=== PATIENT | female | born 1940 | race Two or more races ===

== ENCOUNTER 2020-12-18 19:15 | Inpatient (IN) | payer MEDICARE, OTHER ==
[~2020-12-18] VITALS: Ht 152.4 cm; Wt 54.9 kg
[2020-12-18 20:00] LABS: CALCIUM, SERUM 9.1 mg/dL (8.5-10.1); CARBON DIOXIDE 21 mmol/L (21-32); CHLORIDE 100 mmol/L (98-107); CREATININE 1.4 mg/dL (0.6-1.3); GLUCOSE 108 mg/dL (74-106); POTASSIUM 5.8 mmol/L (3.5-5.1); SODIUM SERUM 134 mmol/L (136-145); UREA NITROGEN, BLOOD 18 mg/dL (7-18)
[2020-12-18 20:06] LABS: ALANINE AMINOTRANSFERASE 50 U/L (12-78); ALBUMIN 2.5 g/dL (3.4-5.0); ALKALINE PHOSPHATASE 368 U/L (46-116); ASPARTATE AMINOTRANSFERASE 107 U/L (15-37); BILIRUBIN,DIRECT 2.4 mg/dL (0.0-0.2); BILIRUBIN,TOTAL 3.9 mg/dL (0.2-1.0); LIPASE 342 U/L (73-393); TOTAL PROTEIN, SERUM 7.4 g/dL (6.4-8.2)
--- NOTE | 2020-12-18 20:17 | NUR ---
Patient to CT
[2020-12-18 20:24] LABS: SERUM AMMONIA 72 umol/L (11-32)
[2020-12-18 20:35] LABS: BASOPHILS # (AUTO) 0.1 /CMM (0.0-0.2); BASOPHILS % (AUTO) 0.6 % (0.0-2.0); EOSINOPHILS % (AUTO) 0.4 % (0.0-6.0); HEMATOCRIT 38 % (33-45); HEMOGLOBIN 12.2 g/dL (11.5-14.8); LYMPHOCYTES # (AUTO) 0.8 /CMM (0.8-4.8); LYMPHOCYTES % (AUTO) 5.8 % (20.0-44.0); MEAN CORPUSCULAR HGB CONC 32 g/dl (31.0-36.0); MEAN CORPUSCULAR VOLUME 99 fL (82-100); MONOCYTES # (AUTO) 0.4 /CMM (0.1-1.30); NEUTROPHILS # (AUTO) 12.9 /CMM (1.8-8.9); NEUTROPHILS % (AUTO) 90.2 % (43.0-81.0); PLATELET COUNT (AUTO) 260 /CMM (150-450); RED BLOOD CELL COUNT(AUTO) 3.87 MIL/uL (4.0-5.2); WHITE BLOOD COUNT (AUTO) 14.3 K/uL (4.3-11.0)
--- NOTE | 2020-12-18 21:05 | NUR ---
DR. LEHMAN AT BEDSIDE FOR PARACENTESIS
--- NOTE | 2020-12-18 21:16 | NUR ---
PERITONEAL FLUIDS COLLECTED AND SENT TO THE LAB.
--- NOTE | 2020-12-18 21:27 | NUR ---
PANEL PAGED PER MD REQUEST
[2020-12-18] MEDS ORDERED: LACTULOSE 10 G/15 ML UDC (PYXIS) PO ONE (21:30)
[2020-12-18] MEDS ORDERED: CEFTRIAXONE 1 G in IV D5W 50 ML IV ONE (21:30)
[2020-12-18 22:08] LABS: BAND % (MANUAL) 5 % (0.0-5.0); LYMPHOCYTES % (MANUAL) 10 % (16-48); MONOCYTES % (MANUAL) 3 % (0-11.0); NEUTROPHILS % (MANUAL) 82 (42-76)
--- NOTE | 2020-12-18 22:08 | NUR ---
5.8L OF YELLOW CLOUDY PERITONEAL FLUID OUT OF PATIENT.
--- NOTE | 2020-12-18 22:19 | NUR ---
BED ASSIGNMENT 118-1
--- NOTE | 2020-12-18 22:20 | NUR ---
RN NOTES RECEIVED ER ADMISSION REPORT FROM JACK DONAHUE. ALL PERTINENT ADMISSION INFO REGARDING PT NOTED. WILL WAIT FOR PT TO BE TRANSFERRED TO UNIT AND ADDRESS NEEDS ACCORDINGLY. DIRECTOR IMMUNOLOGY MADE AWARE.
--- NOTE | 2020-12-18 22:23 | NUR ---
DARIAN (CELL: [phone]/HOME: [phone])
--- NOTE | 2020-12-18 22:28 | NUR ---
REPORT GIVEN TO DEMETRIS SANTIAGO FOR JEANE.
[2020-12-18] MEDS ORDERED: LACTULOSE 10 G/15 ML UDC (PYXIS) ONE (22:30)
[2020-12-18] MEDS ORDERED: CEFTRIAXONE 1GM BAG (ER ONLY) 50 ML IV ONE (22:30)
[2020-12-18] MEDS ORDERED: MEGE20TA3 PO (22:54)
[2020-12-18] MEDS ORDERED: DONE10TA11 PO (22:54)
[2020-12-18] MEDS ORDERED: MEMA10TA56 PO (22:54)
[2020-12-18] MEDS ORDERED: LEVO50TA8 PO (22:54)
--- NOTE | 2020-12-18 22:54 | NUR ---
REC'D MEDICATION LIST FROM PT'S SON DARIAN. PER SON, UNK DOSAGES BUT WILL CALL BACK TOMORROW WITH MORE INFORMATION
--- NOTE | 2020-12-18 23:39 | NUR ---
DR. ESPINOZA SPEAKING WITH DR. PHILLIP
[2020-12-19] MEDS ORDERED: HYDROCODONE/APAP 5/325MG TABLET PO PRN
[2020-12-19] MEDS ORDERED: ACETAMINOPHEN 650 MG/20.3 ML UDC NG PRN
[2020-12-19] MEDS ORDERED: LACTULOSE 10 G/15 ML UDC (PYXIS) PO PRN
--- NOTE | 2020-12-19 00:20 | NUR ---
RN NOTES RECEIVED PT FROM ER VIA GURNEY ACCOMPANIED BY 2 ER STAFF AND TRANSFERRED TO BED VIA 2 PERSON ASSIST. PT IS ALERT AND ORIENTED X2. PT ON ROOM AIR WITH RESPIRATIONS EVEN AND UNLABORED. COMPREHENSIVE PHYSICAL ASSESSMENT AND PATIENT CARE DONE. CALL LIGHT WITHIN REACH, SAFETY MEASURES AND ISOLATION PRECAUTION IN PLACE, WILL CONTINUE MONITOR AND ASSESS THROUGHOUT THE SHIFT. WILL CARRY OUT MD ORDERS ACCORDINGLY. QUALITY PROCESS ENGINEER MADE AWARE.
[2020-12-19 00:30] VITALS: BP 103/48
[2020-12-19] MEDS: IV D5/ 0.9% NACL 1,000 ML IV PRN ×2 (01:00→16:11)
--- NOTE | 2020-12-19 03:30 | NUR ---
RN NOTES PATIENT REMAINS IN NO ACUTE RESPIRATORY DISTRESS AT THIS TIME, NO CHANGES TO CONDITION/STATUS. AM PATIENT CARE DONE. WELDER FITTER ARC WELL AWARE. WILL CONTINUE TO MONITOR AND REASSESS FOR ANY CHANGES THROUGHOUT THE SHIFT
[2020-12-19 04:00] VITALS: BP 138/62
--- NOTE | 2020-12-19 04:14 | NUR ---
RN NOTES PT NOTED TO HAVE EPISODES OF NAUSEA AND VOMITING 2X; MODERATE IN AMOUNT. INSECT CONTROL AIDE MADE AWARE. WILL INFORM DR. PHILLIP AND SECURE ORDER. COMMUNICATED WITH DR. PHILLIP AND SECURE ORDER FOLLOWS: MORPHINE 2MG IV Q3H PRN AND [id number] IV Q4H PRN. RN ACKNOWLEDGED. WILL CARRY OUT ORDERED. INSECT CONTROL AIDE MADE AWARE.
[2020-12-19] MEDS ORDERED: ONDANSETRON HCL/PF 4 MG/2 ML VIAL IV PRN (04:30)
[2020-12-19 06:46] LABS: BASOPHILS # (AUTO) 0.1 /CMM (0.0-0.2); BASOPHILS % (AUTO) 0.2 % (0.0-2.0); HEMATOCRIT 34 % (33-45); HEMOGLOBIN 11.1 g/dL (11.5-14.8); LYMPHOCYTES # (AUTO) 0.3 /CMM (0.8-4.8); LYMPHOCYTES % (AUTO) 1.2 % (20.0-44.0); MEAN CORPUSCULAR HGB CONC 33 g/dl (31.0-36.0); MEAN CORPUSCULAR VOLUME 98 fL (82-100); MONOCYTES # (AUTO) 0.8 /CMM (0.1-1.30); MONOCYTES % (AUTO) 3.1 % (2.0-12.0); NEUTROPHILS # (AUTO) 25.9 /CMM (1.8-8.9); NEUTROPHILS % (AUTO) 95.5 % (43.0-81.0); PLATELET COUNT (AUTO) 169 /CMM (150-450); RED BLOOD CELL COUNT(AUTO) 3.42 MIL/uL (4.0-5.2); WHITE BLOOD COUNT (AUTO) 27.1 K/uL (4.3-11.0)
--- NOTE | 2020-12-19 06:56 | NUR ---
RN CLOSING NOTE: PATIENT REMAINS IN ROOM IN NO SIGNS OF RESPIRATORY DISTRESS, PATIENT STILL ON ROOM AIR;TOLERATING WELL SATURATING @ >95% SP02. SAFETY MEASURES IMPLEMENTED, BED IN LOWEST POSITION, LOCKED, SIDE RAILS UP, CALL LIGHT WITHIN REACH. ALL NEEDS AND ORDERS ADDRESSED DURING THE SHIFT. IV ACCESS MAINTAINED INTACT, SECURED AND FLUSHING WELL. ALL DUE MEDS GIVEN ORDERED & SCHEDULED ; PATIENT TOLERATED WELL. PATIENT KEPT CLEAN AND COMFORTABLE WITHIN THE SHIFT. PATIENT ENDORSED TO INCOMING SHIFT RN WITH STABLE VITAL SIGN AND FOR CONTINUITY OF CARE.
[2020-12-19 07:08] LABS: ALANINE AMINOTRANSFERASE 55 U/L (12-78); ALBUMIN 1.7 g/dL (3.4-5.0); ALKALINE PHOSPHATASE 305 U/L (46-116); ASPARTATE AMINOTRANSFERASE 120 U/L (15-37); BILIRUBIN,TOTAL 4.3 mg/dL (0.2-1.0); CALCIUM, SERUM 8.3 mg/dL (8.5-10.1); CARBON DIOXIDE 21 mmol/L (21-32); CHLORIDE 100 mmol/L (98-107); CREATININE 1.6 mg/dL (0.6-1.3); GLUCOSE 144 mg/dL (74-106); POTASSIUM 4.4 mmol/L (3.5-5.1); SODIUM SERUM 134 mmol/L (136-145); TOTAL PROTEIN, SERUM 5.5 g/dL (6.4-8.2); UREA NITROGEN, BLOOD 21 mg/dL (7-18)
[2020-12-19 07:21] LABS: SERUM AMMONIA 24 umol/L (11-32)
--- NOTE | 2020-12-19 07:25 | NUR ---
RECEIVED PT ON BED AA/O X2 WITH MILD CONFUSION NO SIGNS OF RESPIRATORY DISTRESS, PATIENT STILL ON ROOM AIR;TOLERATING WELL SATURATING @ >95% SP02. . TELE MONITOR READS SINUS RHYTHM . IV ACCESS MAINTAINED INTACT, SECURED AND FLUSHING WELL. SAFETY MEASURES IMPLEMENTED, BED IN LOWEST POSITION, LOCKED, SIDE RAILS UP, CALL LIGHT WITHIN REACH
[2020-12-19 08:00] VITALS: BP 105/58
[2020-12-19] MEDS: LEVOTHYROXINE SODIUM 50 MCG TABLET PO SCH (08:44)
[2020-12-19] MEDS: RIFAXIMIN 550 MG TABLET PO SCH ×2 (08:44→16:11)
[2020-12-19] MEDS: LACTULOSE 10 G/15 ML UDC (PYXIS) PO SCH ×2 (08:44→16:11)
[2020-12-19 12:00] VITALS: BP 109/65
--- NOTE | 2020-12-19 13:55 | NUR ---
reported to Dr Trejo that pt have an episode of tachycardia as high as 160 but not sustaining, pt didnt complaint of pain of chest pain pt is easy to awake with tele reading of sinus rhythm to sinus tachy, with NO NEW ORDER
[2020-12-19 16:00] VITALS: BP 110/59
[2020-12-19] MEDS: MORPHINE SULFATE INJ 2 MG/ML DISP.SYRIN IV PRN (16:31)
--- NOTE | 2020-12-19 18:49 | NUR ---
PATIENT REMAINS IN ROOM IN NO SIGNS OF RESPIRATORY DISTRESS, PATIENT STILL ON ROOM AIR;TOLERATING WELL SATURATING @ >95% SP02. . ALL NEEDS AND ORDERS ADDRESSED DURING THE SHIFT. IV ACCESS MAINTAINED INTACT, SECURED AND FLUSHING WELL. ALL DUE MEDS GIVEN ORDERED & SCHEDULED ; PATIENT TOLERATED WELL. PATIENT KEPT CLEAN AND COMFORTABLE WITHIN THE SHIFT.SAFETY MEASURES IMPLEMENTED, BED IN LOWEST POSITION, LOCKED, SIDE RAILS UP, CALL LIGHT WITHIN REACH PATIENT ENDORSED TO NOC NURSE
[2020-12-19 20:00] VITALS: BP 111/54
[2020-12-19] MEDS: CEFTRIAXONE 1 G in IV D5W 50 ML IV SCH (22:17)
[2020-12-20] VITALS: BP 115/52
[2020-12-20] MEDS: IV D5/ 0.9% NACL 1,000 ML IV PRN (02:53)
[2020-12-20] MEDS: MORPHINE SULFATE INJ 2 MG/ML DISP.SYRIN IV PRN ×2 (02:54→06:57)
[2020-12-20 04:00] VITALS: BP 137/56
[2020-12-20 07:15] LABS: BASOPHILS % (AUTO) 0.1 % (0.0-2.0); EOSINOPHILS % (AUTO) 0.1 % (0.0-6.0); HEMATOCRIT 34 % (33-45); HEMOGLOBIN 11.1 g/dL (11.5-14.8); LYMPHOCYTES # (AUTO) 0.7 /CMM (0.8-4.8); LYMPHOCYTES % (AUTO) 3.4 % (20.0-44.0); MEAN CORPUSCULAR HGB CONC 33 g/dl (31.0-36.0); MEAN CORPUSCULAR VOLUME 98 fL (82-100); MONOCYTES # (AUTO) 0.8 /CMM (0.1-1.30); MONOCYTES % (AUTO) 4.4 % (2.0-12.0); NEUTROPHILS # (AUTO) 17.5 /CMM (1.8-8.9); PLATELET COUNT (AUTO) 158 /CMM (150-450); RED BLOOD CELL COUNT(AUTO) 3.43 MIL/uL (4.0-5.2); WHITE BLOOD COUNT (AUTO) 19.1 K/uL (4.3-11.0)
--- NOTE | 2020-12-20 07:15 | NUR ---
RN OPENING NOTES RECEIVED PT IN BED, AWAKE A/O X2 WITH MILD CONFUSION. STABLE ON ROOM AIR O2 SAT @97%. NO SOB OR ANY S/S OF RESPIRATORY DISTRESS. TELE MONITOR READS SR. IV ACCESS AT R WRIST #22 INTACT AND PATENT. D5NS RUNNING @75ML, INFUSING WELL. SAFETY MEASURES IMPLEMENTED. CALL LIGHT WITHIN REACH. BED LOCKED AND IN LOWEST POSITION WITH SIDE RAILS UP X3. WILL CONTINUE TO MONITOR.
[2020-12-20 07:39] LABS: CALCIUM, SERUM 7.6 mg/dL (8.5-10.1); CARBON DIOXIDE 25 mmol/L (21-32); CHLORIDE 104 mmol/L (98-107); CREATININE 1.1 mg/dL (0.6-1.3); GLUCOSE 105 mg/dL (74-106); POTASSIUM 3.7 mmol/L (3.5-5.1); SODIUM SERUM 138 mmol/L (136-145); UREA NITROGEN, BLOOD 17 mg/dL (7-18)
[2020-12-20 08:00] VITALS: BP 119/62
[2020-12-20 08:07] LABS: SERUM AMMONIA < 10 umol/L (11-32)
--- NOTE | 2020-12-20 09:20 | NUR ---
WOUND CARE CONSULT: PT PRESENTS WITH SACRAL DEEP TISSUE INJURY IN EVOLUTION WELL MULTIPLE AREAS OF SKIN DISCOLORATION, PRESENT ON ADMISSION. ABDOMEN NOTED TO BE LARGE. RECOMMENDATIONS MADE FOR SKIN PROTECTION. DISCUSSED WITH NURSING STAFF. PT TO BE PLACED ON [facility] LOW AIRLOSS BED. IN AGREEMENT WITH PLAN OF CARE. Addendum: 12/20/20 at 0922 by ADRIANNE DOVE WNDNU Amended: Links added.
[2020-12-20] MEDS ORDERED: Z GUARD REMEDY 2 OZ OINT TP PRN (09:30)
[2020-12-20] MEDS: LACTULOSE 10 G/15 ML UDC (PYXIS) PO SCH ×2 (09:38→17:42)
[2020-12-20] MEDS: SPIRONOLACTONE 25 MG TABLET PO SCH (09:38)
[2020-12-20] MEDS: FUROSEMIDE 20 MG TABLET PO SCH (09:39)
[2020-12-20] MEDS: RIFAXIMIN 550 MG TABLET PO SCH ×2 (09:39→17:42)
[2020-12-20] MEDS: LEVOTHYROXINE SODIUM 50 MCG TABLET PO SCH (09:39)
[2020-12-20] MEDS: Z GUARD REMEDY 2 OZ OINT TP SCH (09:39)
[2020-12-20 12:00] VITALS: BP 110/64
--- NOTE | 2020-12-20 15:57 | NUR ---
Lead Assistant Manager note: government services professional consult request to obtain family contact information received. SW spoke to charge nurse, Connor who stated that public health staff nurse already have patient's family contact information. No further SS interventions at this time, however, SW will remain available as needed.
[2020-12-20 16:00] VITALS: BP 114/57
--- NOTE | 2020-12-20 19:24 | NUR ---
RN CLOSING NOTES NO SIGNIFICANT CHANGES DURING SHIFT. STABLE ON ROOM AIR. NO S/S OF RESPIRATORY DISTRESS. ALL DUE MEDS GIVEN. NEEDS ATTENDED. SAFETY MEASURES STILL IN PLACE. WILL ENDORSE TO NIGHT RN FOR JEANE.
--- NOTE | 2020-12-20 19:30 | NUR ---
RN NOTE RECEIVED PT ALERT AND ORIENTED X 2. VERBALLY RESPONSIVE. DENIES ANY PAIN AT THIS TIME. SINUS RHYTHM ON TELE MONITOR WITH HR OF 75. NO DISTRESS NOTED. IV ON R WRIST LEAKING, REMOVED. WILL APPLY NEW IV LINE. ALL SAFETY MEASURES IMPLEMENTED PER PROTOCOL. SIDE RAILS UP X2. BED LOCKED IN LOWEST POSITION. CALL LIGHT WITHIN REACH.
[2020-12-20 20:00] VITALS: BP 127/64
[2020-12-20] MEDS: CEFTRIAXONE 1 G in IV D5W 50 ML IV SCH (22:00)
[2020-12-21] VITALS: BP 134/60
[2020-12-21 04:00] VITALS: BP 134/63
--- NOTE | 2020-12-21 07:00 | NUR ---
RN NOTE NO SIGNIFICANT CHANGES NOTED. PT VS STABLE. NO PAIN DISTRESS NOTED. ALL NEEDS ATTENDED. WILL ENDORSED TO NEXT SHIFT NURSE FOR JEANE
[2020-12-21 07:06] LABS: BASOPHILS % (AUTO) 0.1 % (0.0-2.0); EOSINOPHILS % (AUTO) 0.9 % (0.0-6.0); HEMATOCRIT 34 % (33-45); HEMOGLOBIN 11.5 g/dL (11.5-14.8); LYMPHOCYTES # (AUTO) 0.7 /CMM (0.8-4.8); LYMPHOCYTES % (AUTO) 4.7 % (20.0-44.0); MEAN CORPUSCULAR HGB CONC 33 g/dl (31.0-36.0); MEAN CORPUSCULAR VOLUME 98 fL (82-100); MONOCYTES # (AUTO) 0.8 /CMM (0.1-1.30); MONOCYTES % (AUTO) 5.8 % (2.0-12.0); NEUTROPHILS # (AUTO) 12.7 /CMM (1.8-8.9); NEUTROPHILS % (AUTO) 88.5 % (43.0-81.0); PLATELET COUNT (AUTO) 151 /CMM (150-450); RED BLOOD CELL COUNT(AUTO) 3.51 MIL/uL (4.0-5.2); WHITE BLOOD COUNT (AUTO) 14.3 K/uL (4.3-11.0)
--- NOTE | 2020-12-21 07:30 | NUR ---
RN OPENING NOTES Patient is alert and awake during endorsement. Patient is breathing even and unlabored. No c/o pain or discomfort. No s/sx of respiratory distress noted. Patient is on room air with 02 saturation of 96%. Right forearm 22 gauze iv patent and flushes well. Bed is in lowest and locked position. Call light with in reach. Will continue to monitor.
[2020-12-21 07:35] LABS: CALCIUM, SERUM 7.5 mg/dL (8.5-10.1); CREATININE 0.9 mg/dL (0.6-1.3); POTASSIUM 3.8 mmol/L (3.5-5.1)
[2020-12-21 08:00] VITALS: BP 133/89
[2020-12-21] MEDS ORDERED: SPIR25TA6 PO (08:55)
[2020-12-21] MEDS ORDERED: LACT10SO58 PO (08:55)
[2020-12-21] MEDS ORDERED: FURO20TA4 PO (08:55)
[2020-12-21] MEDS ORDERED: RIFA550T PO (08:55)
[2020-12-21] MEDS ORDERED: LACTULOSE 10 G/15 ML UDC (PYXIS) PO SCH (09:00)
[2020-12-21] MEDS: LEVOTHYROXINE SODIUM 50 MCG TABLET PO SCH (09:11)
[2020-12-21] MEDS: SPIRONOLACTONE 25 MG TABLET PO SCH (09:12)
[2020-12-21] MEDS: FUROSEMIDE 20 MG TABLET PO SCH (09:13)
[2020-12-21] MEDS: RIFAXIMIN 550 MG TABLET PO SCH ×2 (09:14→17:36)
[2020-12-21] MEDS: Z GUARD REMEDY 2 OZ OINT TP SCH (09:19)
--- NOTE | 2020-12-21 11:00 | NUR ---
RN NOTES PER DR. PHILLIP DISCONTINUE IN AND OUT STRAIGHT CATHETER FOR URINALYSIS.
[2020-12-21 16:22] VITALS: BP 121/75
--- NOTE | 2020-12-21 19:00 | NUR ---
RN OPENING NOTE RECEIVED PATIENT IN BED RESTING ALERT ORIENTED X2 VERBALLY RESPONSIVE NO SOB NOT ACUTE DISTRESS NOTED,SHE IS ON ROOM AIR O2:96% IV SITE IS ON LEFT FOREARM INTACT PATENT INCONTINENT TO BOWEL/BLADER SAFETY MEASURE IMPLEMENT BED IN LOW POSITION AND LOCKED,CALL LIGHT WITHIN REACH,CONTINUE TO MONITOR.
--- NOTE | 2020-12-21 19:05 | NUR ---
RN CLOSING NOTED Resident is alert and oriented x2 with forgetfulness. Patient is breathing even and unlabored. No c/o pain or discomfort. No s/sx of respiratory distress noted. Patient is on room air with 02 saturation of 99%. Right forearm 22 gauze iv patent and flushes well. Bed is in lowest and locked position. Call light with in reach. Patient will be discharged to [facility] in noc shift. Will endorse to next shift. Patient had paracentesis and had 3300 cc of fluids removed.
--- NOTE | 2020-12-21 20:08 | NUR ---
RN CLOSING NOTE PATIENT DISCHARGE [facility],IN STABLE CONDITION,ALERT ORIENTED X2 VERBALLY RESPONSIVE ON ROOM AIR O2:96%,REMOVED IV LINE ON LEFT FOREARM NO BLEEDING NO DISCHARGE NOTED,PATIENT LEFT HOSPITAL WITH ALL BELONGINGS AFTER SHE SIGNED ALL PAPERS, SHE DISCHARGE IN STABLE CONDITION VITAL SIGNS BP 116/59 HR 79 RR 19 T:98 O2:96% WITH ACCOMPANIED BY 2 [facility] [employer].
== END 2020-12-21 20:23 | DRG 432 ==
LOC: ER 19:19 → TELE-TD 23:33 → TELE1 12-19 00:29 → MEDSG1 12-21 08:40
PROVIDERS: ADMIT Internal Medicine; ATTEND Internal Medicine
PROC: 0W9G3ZZ Drainage of Peritoneal Cavity, Percutaneous Approach (ICD-10-PCS; principal; 2020-12-21)
DX: K70.31 Alcoholic cirrhosis of liver with ascites (principal); N17.0 Acute kidney failure with tubular necrosis; E87.1 Hypo-osmolality and hyponatremia; E46 Unspecified protein-calorie malnutrition; N39.0 Urinary tract infection, site not specified; K72.90 Hepatic failure, unspecified without coma; F10.20 Alcohol dependence, uncomplicated; K44.9 Diaphragmatic hernia without obstruction or gangrene; F03.90 Unspecified dementia, unspecified severity, without behavioral disturbance, psychotic disturbance, mood disturbance, and anxiety; I71.4 Abdominal aortic aneurysm, without rupture; E87.5 Hyperkalemia; Z20.822 Contact with and (suspected) exposure to COVID-19; D64.9 Anemia, unspecified; I12.9 Hypertensive chronic kidney disease with stage 1 through stage 4 chronic kidney disease, or unspecified chronic kidney disease; N18.9 Chronic kidney disease, unspecified; R91.1 Solitary pulmonary nodule; F17.200 Nicotine dependence, unspecified, uncomplicated; N20.0 Calculus of kidney
CPT/HCPCS: 36415; 49083; 71045-TC; 76942-TC; 80048-TC; 80053-TC; 80074; 80076-TC; 82140-TC; 83690-TC; 84443-TC; 84484-TC; 85025-TC; 85730-TC; 87070-TC; 87081-TC; 89051-TC; 97110-TC; 97530-TC; A6403; C9803; G0378; J0696; J2270; J7042; J7060

== ENCOUNTER 2021-01-17 20:50 | Emergency (ER) | payer OTHER ==
[~2021-01-17] VITALS: Ht 157.5 cm; Wt 59.0 kg
[~2021-01-17 20:50] MED LIST: DONE10TA11 PO; FURO20TA4 PO; LACT10SO58 PO; LEVO50TA8 PO; MEGE20TA3 PO; MEMA10TA56 PO; RIFA550T PO; SPIR25TA6 PO
--- NOTE | 2021-01-17 20:54 | NUR ---
BIBRA 102 FROM HOME FOR "SOB PER SON". MISSED PARACENTHESIS TODAY. LAST PARACENTHESIS 2 WKS AGO. ALSO W/ C/O RUE PAIB. DENIED TRAUMA OR FALL, PT AAOX1-2, NOTED WITH DISTENDED ABD, C/O SOB, ON RA 97%, NOT IN ACUTE DISTRESS, VSS, PENDING ER PROVIDER LUISAL
[2021-01-17 21:37] LABS: BASOPHILS # (AUTO) 0.1 /CMM (0.0-0.2); BASOPHILS % (AUTO) 0.5 % (0.0-2.0); EOSINOPHILS % (AUTO) 0.4 % (0.0-6.0); HEMATOCRIT 40 % (33-45); HEMOGLOBIN 12.9 g/dL (11.5-14.8); LYMPHOCYTES # (AUTO) 0.8 /CMM (0.8-4.8); LYMPHOCYTES % (AUTO) 4.9 % (20.0-44.0); MEAN CORPUSCULAR HGB CONC 32 g/dl (31.0-36.0); MEAN CORPUSCULAR VOLUME 99 fL (82-100); MONOCYTES % (AUTO) 5.7 % (2.0-12.0); NEUTROPHILS # (AUTO) 14.9 /CMM (1.8-8.9); NEUTROPHILS % (AUTO) 88.5 % (43.0-81.0); PLATELET COUNT (AUTO) 280 /CMM (150-450); RED BLOOD CELL COUNT(AUTO) 3.99 MIL/uL (4.0-5.2); WHITE BLOOD COUNT (AUTO) 16.8 K/uL (4.3-11.0)
[2021-01-17 22:01] LABS: ALANINE AMINOTRANSFERASE 47 U/L (12-78); ALBUMIN 2.2 g/dL (3.4-5.0); ALKALINE PHOSPHATASE 305 U/L (46-116); ASPARTATE AMINOTRANSFERASE 38 U/L (15-37); BILIRUBIN,DIRECT 0.7 mg/dL (0.0-0.2); BILIRUBIN,TOTAL 1.4 mg/dL (0.2-1.0); CALCIUM, SERUM 8.5 mg/dL (8.5-10.1); CARBON DIOXIDE 21 mmol/L (21-32); CHLORIDE 97 mmol/L (98-107); CREATININE 1.2 mg/dL (0.6-1.3); GLUCOSE 109 mg/dL (74-106); POTASSIUM 5.2 mmol/L (3.5-5.1); SODIUM SERUM 128 mmol/L (136-145); TOTAL PROTEIN, SERUM 6.7 g/dL (6.4-8.2); UREA NITROGEN, BLOOD 26 mg/dL (7-18)
--- NOTE | 2021-01-18 01:57 | NUR ---
IRIS CM CALLED BACK; POSSIBLE [facility]FER [facility]
--- NOTE | 2021-01-18 03:43 | NUR ---
[facility] [address] [phone]
--- NOTE | 2021-01-18 06:28 | NUR ---
CALLED FOR REPORT, NURSE NOT AVAILABLE
[2021-01-18 06:59] VITALS: BP 128/75
--- NOTE | 2021-01-18 07:53 | NUR ---
CALLED FOR REPORT, REPORT GIVEN TO MANJIT GAMBINO AT [facility]
--- NOTE | 2021-01-18 07:54 | NUR ---
REPORT GIVEN TO EMT. DISCHARGE PAPERWORK GIVEN W/ CD. PATIENT A/OX3, BREATHING EVEN AND UNLABORED, NO SOB NOTED. NEEDS ATTENDED. KEPT COMFORTABLE. VSS.
--- NOTE | 2021-01-18 07:57 | NUR ---
PATIENT TRANSFERRED TO [facility], IN STABLE CONDITION.
== END 2021-01-18 07:56 | disposition short-term general hospital (02) ==
LOC: ER 20:50
DX: R18.8 Other ascites (principal); K72.90 Hepatic failure, unspecified without coma; I10 Essential (primary) hypertension; Z88.0 Allergy status to penicillin; Z79.899 Other long term (current) drug therapy; R06.02 Shortness of breath; Z20.822 Contact with and (suspected) exposure to COVID-19
CPT/HCPCS: 36415; 71045-TC; 80048-TC; 80076-TC; 83880; 84484-TC; 85025-TC; 85730-TC; C9803